=== PATIENT | female | born 1955 | race Caucasian/White ===

== ENCOUNTER 2016-12-16 09:51 | Emergency (ER) | payer BC, OTHER ==
[2016-12-16 10:02] VITALS: BP 141/81; PULSE 67; TEMP 98.3; BMI 25.9
--- NOTE | 2016-12-16 11:24 | PDOC ---
History of Present Illness - General Chief Complaint: Pain Stated Complaint: BODY ACHES Time Seen by Provider: 12/16/16 10:36 History Source: Patient Exam Limitations: No Limitations - History of Present Illness Initial Comments: 12/16/16 11:31 Patient came to emergency department for evaluation of total body aches 3 years. States has had no fever, has a productive cough of thick brownish phlegm but is a pack and a half a day smoker for many years. Denies earache or sore throat pain. Denies any nausea vomiting diarrhea constipation but states has multiple areas of joint pain and body aches. Patient states stopped taking her psychiatric medications 3 years ago which included meds for her bipolar disease and her depression. Denies homicidal suicidal ideation, understands her may be relationship with her body aches and this medication but states the medications are too expensive to by. Has not seen of private physician for 2 years and has multiple stories about living arrangements, insurance arrangements, and is hesitant to answer full questions. Occurred: reports: other (3 year ) Severity: reports: mild Pain Location: reports: lower extremity, upper extremity Method of Injury: Yes: unknown Modifying Factors: improves with: None Loss of Consciousness: no loss of consciousness Associated Symptoms (Fall): denies symptoms Past History - Travel Traveled outside of the country in the last 30 days: No Close contact w/someone who was outside of country & ill: No - Past Medical History Allergies/Adverse Reactions: Allergies Allergy/AdvReac Type Severity Reaction Status Date / Time No Known Allergies Allergy Verified 12/16/16 09:59 Home Medications: Ambulatory Orders NK [No Known Home Medication] 12/16/16 HTN: Yes (not on meds) Psychiatric Problems: Yes (anxiety) - Surgical History Abdominal Surgery: Yes Cholecystectomy: Yes - Suicide/Smoking/Psychosocial Hx Smoking History: Never smoked Hx Alcohol Use: No Drug/Substance Use Hx: No Substance Use Type: None Trauma Specific PMHX - Complaint Specific PMHX Back Injury: No Neck Injury: No Review of Systems - Review of Systems Able to Perform ROS?: Yes Is the patient limited [place] proficient: Yes Constitutional: Yes: Symptoms Reported, See HPI, Malaise. No: Fever HEENTM: Yes: Symptoms Reported Respiratory: Yes: Symptoms reported, See HPI, Cough (states smokes 1-1/2 packs cigarettes daily). No: Wheezing Musculoskeletal: Yes: Symptoms Reported, See HPI, Back Pain, Joint Pain Integumentary: Yes: See HPI. No: Symptoms Reported All Other Systems: Reviewed and Negative *Physical Exam - Vital Signs Last Vital Signs Temp Pulse Resp BP Pulse Ox 98.3 F 67 18 141/81 98 12/16/16 09:54 12/16/16 09:54 12/16/16 09:54 12/16/16 09:54 12/16/16 09:54 - Physical Exam General Appearance: Yes: Nourished, Appropriately Dressed, Apparent Distress, Mild Distress (tearful ) HEENT: positive: JONNATHAN, Normal ENT Inspection, TMs Normal, Pharynx Normal Neck: positive: Supple, Lymphadenopathy (R), Lymphadenopathy (L). negative: Tender Respiratory/Chest: positive: Lungs Clear, Normal Breath Sounds, Crackles Cardiovascular: positive: Regular Rhythm Gastrointestinal/Abdominal: positive: Normal Bowel Sounds, Soft. negative: Tender Musculoskeletal: positive: Normal Inspection. 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 negative: Normal Mood/Affect (tearful and talkative, changing topics, providing excuses for all reasons of not continuing medications, continuing to smoke, not seeing physician. ) ED Treatment Course - RADIOLOGY Radiology Studies Ordered: Category Date Time Status CHEST PA & LAT [RAD] Stat Radiology 12/16/16 11:09 Ordered Progress Note - Progress Note Progress Note: Patient's urinalysis does not reveal any urinary tract infection or kidney dysfunction however shows +2 blood. Patient has never had hematuria in the past per her history and has no kidney disease. We will have follow-up with PMD for further evaluation and thorough exam. Chest x-ray is negative for infiltrates. No evidence of bacterial infection or need for antibiotics at this visit, encourage patient to obtain private physician and psychiatrist to reinitiate medications that are important for her psychiatric stability. *DC/Admit/Observation/Transfer Diagnosis at time of Disposition: Body aches - Discharge Dispostion Disposition: HOME Condition at time of disposition: Stable Admit: No - Referrals Referrals: Dany Segura MD [Primary Care Provider] - [facility] ([place]) [Outside] - Patient Instructions Printed Discharge Instructions: DI for Bipolar Disorder Additional Instructions: Rest, drink lots of fluids: Teas, water, soups, Saltwater gargles Steamy showers/seem to face break up mucus Avoid contact with others until fevers and cough resolved Lots of handwashing and good hygiene Continue [id number] medications for symptomatic relief Tylenol or Motrin for fever and pain Followup with private physician in one to 2 days as needed Return to emergency department for worsened symptoms, fevers, dehydration All and make appointment for thorough physical exam this week to have labs checked and urine rechecked Seek and obtain an appointment for psychiatrist for reevaluation for history of bipolar disease and depression as medications should be reinstituted. [facility], [facility], [facility], [facility] emergency departments where you can seek care emergently
[2016-12-16 11:30] LABS: URINE APPEARANCE CLEAR; URINE BILIRUBIN NEGATIVE (NEGATIVE); URINE BLOOD 2+ (NEGATIVE); URINE COLOR LTYELLOW; URINE GLUCOSE (UA) NEGATIVE (NEGATIVE); URINE KETONE NEGATIVE (NEGATIVE); URINE LEUK ESTERASE NEGATIVE (NEGATIVE); URINE NITRITE NEGATIVE (NEGATIVE); URINE PROTEIN NEGATIVE (NEGATIVE); URINE UROBILINOGEN NEGATIVE mg/dL (0.2-1.0)
[2016-12-16 11:35] LABS: URINE MUCUS RARE; URINE RBC 3 /hpf (0-3); URINE WBC <1 /hpf (3-5)
== END 2016-12-16 12:07 | disposition home or self-care (01) ==
LOC: JERFT 09:51
DX: M25.50 Pain in unspecified joint (principal); M79.1 Myalgia; I10 Essential (primary) hypertension; F31.9 Bipolar disorder, unspecified
CPT/HCPCS: 71020-TC; 81003; 81015; 99281-25